=== PATIENT | male | born 1975 | race African-American/Black ===

== ENCOUNTER 2019-05-19 12:06 | Emergency (ER) | payer BC ==
[2019-05-19 12:22] VITALS: BP 121/84
--- NOTE | 2019-05-19 12:32 | PHYS DOC ---
Past History Past Medical History: Seizure Past Surgical History: No Surgical History Alcohol Use: None Drug Use: None Adult General Chief Complaint Chief Complaint: ABDOMINAL PAIN HPI HPI Patient is a 43-year-old male presents complaining of left-sided lower abdominal pain that started yesterday. He has had multiple diarrheal stools since this time. Noted some blood in the first stool when wiping. No blood since that time. Patient's last meal was at [employer] yesterday around noon. No recent travel. No previous surgical history on his abdomen. Describes the pain is achy. Mild to moderate discomfort. Nothing makes the discomfort better or worse. No radiation of the discomfort. Patient has a known seizure disorder with his last seizure being 5 days ago.[] Review of Systems Review of Systems Constitutional: Denies fever or chills [] Eyes: Denies change in visual acuity, redness, or eye pain [] HENT: Denies nasal congestion or sore throat [] Respiratory: Denies cough or shortness of breath [] Cardiovascular: No chest pain or palpitations[] GI: See history of present illness[] : Denies dysuria or hematuria [] Musculoskeletal: Denies back pain or joint pain [] Integument: Denies rash or skin lesions [] Neurologic: Denies headache, focal weakness or sensory changes [] Endocrine: Denies polyuria or polydipsia [] All other systems were reviewed and found to be within normal limits, except as documented in this note. Allergies Allergies Allergies Coded Allergies Type Severity Reaction Last Updated Verified levetiracetam Allergy Unknown 05/19/19 Yes phenytoin Allergy Unknown 05/19/19 Yes Physical Exam Physical Exam Constitutional: Well developed, well nourished, no acute distress, non-toxic appearance. [] HENT: Normocephalic, atraumatic, bilateral external ears normal, oropharynx moist, no oral exudates, nose normal. [] Eyes: PERRLA, EOMI, conjunctiva normal, no discharge. [] Neck: Normal range of motion, no tenderness, supple, no stridor. [] Cardiovascular:Heart rate regular rhythm, no murmur [] Lungs & Thorax: Bilateral breath sounds clear to auscultation [] Abdomen: Bowel sounds normal, soft, tenderness in the left lower quadrant, no rebound, no guarding, no rigidity, able to sit up and lay back without any diffi culty, no masses, no pulsatile masses. [] Skin: Warm, dry, no erythema, no rash. [] Back: No tenderness, no CVA tenderness. [] Extremities: No tenderness, no cyanosis, no clubbing, ROM intact, no edema. [] Neurologic: Alert and oriented X 3, normal motor function, normal sensory function, no focal deficits noted. [] Psychologic: Affect normal, judgement normal, mood normal. [] EKG EKG [] Radiology/Procedures Radiology/Procedures TECHNIQUE: CT abdomen and pelvis with IV contrast with multiplanar reformats. COMPARISON: None FINDINGS: Heart is normal in size. No pericardial or pleural effusion. Clear lung bases. Liver, spleen, gallbladder, pancreas, adrenals and kidneys are within normal limits. No enlarged retroperitoneal or pelvic adenopathy. No free pelvic fluid or ascites. No bowel obstruction. Normal appendix. No pneumoperitoneum. The prostate and seminal vesicles show no large mass. Urinary bladder is within normal limits. Stomach is markedly distended with ingested contrast. Large amount of fluid is seen in the rectum. No suspicious bony lesion. IMPRESSION: Moderate to large amount of fluid in the rectum, nonspecific. No bowel obstruction. No imaging evidence of colitis. No nephrolithiasis or hydronephrosis.[] Course & Med Decision Making Course & Med Decision Making Pertinent Labs and Imaging studies reviewed. (See chart for details) ED course: Patient arrived, was placed in bed, and tolerated exam well. He was a ble to tolerate oral contrast was transported to and from [place] with any complications. He did get some relief with the medications administered. After return of laboratory and imaging studies, these were discussed with the patient voiced understanding. All questions were answered. He was discharged in improved condition. Medical decision making: There is no evidence of an obstruction, perforation, diverticulitis, nor abscess. No evidence of significant electrolyte abnormality. LFTs are noted to be slightly elevated and this can be followed as an outpatient may be related to his antiseizure medicine. No evidence of oral intake intolerance. No urinary tract infection or pyelonephritis. No evidence of starvation status as evidenced by no ketones in his urine.[] Dragon Disclaimer Dragon Disclaimer This electronic medical record was generated, in whole or in part, using a voice recognition dictation system. Departure Departure: Impression: Primary Impression: Diarrhea Disposition: 01 HOME, SELF-CARE Condition: IMPROVED Referrals: [facility] (PCP) Patient Instructions: Diarrhea, Diet for Diarrhea, Adult Additional Instructions: Drink plenty of fluids, frequent small sips. No fatty foods, no milk, and no pepper for the next 48 hours. For the next 48 hours eat a diet rich in carbohydrates with foods such as bananas, rice, applesauce, and toast. Follow-up with your regular doctor in 2 days. If you do not have regular doctor, a list of local clinics will be provided for you. Return to the ER if blood in the stool, unable to tolerate liquids, or any other concerns. Scripts Metoclopramide Hcl (REGLAN) 10 Mg Tablet 10 MG PO QID for nausea and vomiting, #30 TAB Prov: NENA RUVALCABA DO 05/19/19 Hyoscyamine Sulfate (LEVSIN) 0.125 Mg Tablet 0.125 MG PO QID for abdominal pain/cramping, #30 TAB Prov: NENA RUVALCABA DO 05/19/19 Problem Qualifiers Primary Impression: Diarrhea Diarrhea type: unspecified type Qualified Codes: R19.7 - Diarrhea, unspecified NENA RUVALCABA DO May 19, 2019 12:32
[2019-05-19] MEDS ORDERED: ONDANSETRON PF 4 MG/2 ML VIAL. IV ONE (12:45)
[2019-05-19] MEDS ORDERED: HYOSCYAMINE 0.125 MG TAB.RAPDIS PO ONE (12:45)
[2019-05-19 12:48] LABS: BASO % 1 % (0-3); EOS # 0.2 x10^3/uL (0.0-0.7); EOS % 3 % (0-3); HEMATOCRIT 44.6 % (39.0-53.0); HEMOGLOBIN 14.3 g/dL (13.0-17.5); LYMPH # 1.3 x10^3/uL (1.0-4.8); LYMPH % 22 % (24-48); MEAN CORPUSCULAR HEMOGLOBIN 31 pg (25-35); MEAN CORPUSCULAR HGB CONC 32 g/dL (31-37); MEAN CORPUSCULAR VOLUME 98 fL (79-100); MONO # 0.6 x10^3/uL (0.0-1.1); MONO % 11 % (0-9); NEUT # 3.6 x10^3uL (1.8-7.7); NEUT % 64 % (31-73); PLATELET COUNT 363 x10^3/uL (140-400); RED BLOOD COUNT 4.57 x10^6/uL (4.30-5.70); RED CELL DISTRIBUTION WIDTH 12.8 % (11.5-14.5); WHITE BLOOD COUNT 5.7 x10^3/uL (4.0-11.0)
[2019-05-19] MEDS: IV NORMAL SALINE 1,000ML 1,000 ML IV SCH ×2 (12:48→13:25)
[2019-05-19] MEDS ORDERED: IOHEXOL 240 MG/ML 50ML VIAL. PO ONE (13:00)
[2019-05-19] MEDS ORDERED: IOHEXOL 300 MG/ML 75 ML VIAL. IV ONE (13:00)
[2019-05-19 13:03] LABS: ALBUMIN 4.1 g/dL (3.4-5.0); ALBUMIN/GLOBULIN RATIO 0.8 (1.0-1.7); CALCIUM 9.8 mg/dL (8.5-10.1); CREATININE 0.9 mg/dL (0.7-1.3); GFR 110.4; TOTAL BILIRUBIN 0.4 mg/dL (0.2-1.0); TOTAL PROTEIN 9.4 g/dL (6.4-8.2)
[2019-05-19 13:04] LABS: POTASSIUM 4.6 mmol/L (3.5-5.1)
--- NOTE | 2019-05-19 13:58 | RAD ---
PQRS Compliance statement: One or more of the following individualized dose reduction techniques were utilized for this examination: 1. Automated exposure control. 2. Adjustment of the mA and/or kV according to patient size. 3. Use of iterative reconstruction technique. Indication:Left lower abdominal pain. TECHNIQUE: CT abdomen and pelvis with IV contrast with multiplanar reformats. COMPARISON: None FINDINGS: Heart is normal in size. No pericardial or pleural effusion. Clear lung bases. Liver, spleen, gallbladder, pancreas, adrenals and kidneys are within normal limits. No enlarged retroperitoneal or pelvic adenopathy. No free pelvic fluid or ascites. No bowel obstruction. Normal appendix. No pneumoperitoneum. The prostate and seminal vesicles show no large mass. Urinary bladder is within normal limits. Stomach is markedly distended with ingested contrast. Large amount of fluid is seen in the rectum. No suspicious bony lesion. IMPRESSION: Moderate to large amount of fluid in the rectum, nonspecific. No bowel obstruction. No imaging evidence of colitis. No nephrolithiasis or hydronephrosis. Electronically signed by: Delfin Gaspar DO (05/19/2019 1:56 PM) [facility]
[2019-05-19 14:12] LABS: BILIRUBIN,URINE NEG (NEG); CLARITY,URINE CLEAR; COLOR,URINE YELLOW; GLUCOSE,URINE NEG (NEG); NITRITE,URINE NEG (NEG); UROBILINOGEN,URINE 0.2 mg/dL (0.2 mg/dL)
[2019-05-19 14:13] LABS: BACTERIA,URINE 0 /HPF (0-FEW); RBC,URINE 0 /HPF (0-2); SQUAMOUS EPITHELIAL CELL,UR OCC /LPF; WBC,URINE 0 /HPF (0-4)
[2019-05-19] MEDS ORDERED: METO10TA81 PO (14:22)
[2019-05-19] MEDS ORDERED: HYOS0.1264 PO (14:22)
== END 2019-05-19 14:30 | disposition home or self-care (01) ==
LOC: ER 12:06
DX: R19.7 Diarrhea, unspecified (principal); R10.32 Left lower quadrant pain; G40.909 Epilepsy, unspecified, not intractable, without status epilepticus; Z88.8 Allergy status to other drugs, medicaments and biological substances
CPT/HCPCS: 36415; 74177; 80053; 81001; 83690; 85025; 96361; 96374; 99285; J2405; J7030

== ENCOUNTER 2021-06-30 09:11 | Emergency (ER) | payer BC ==
[~2021-06-30] VITALS: Ht 177.8 cm; Wt 57.0 kg
[~2021-06-30 09:11] MED LIST: HYOS0.1264 PO; METO10TA81 PO
[2021-06-30 09:23] VITALS: BP 121/84
--- NOTE | 2021-06-30 09:38 | PHYS DOC ---
Past History Past Medical History: Seizure Past Surgical History: No Surgical History Alcohol Use: None Drug Use: None Adult General HPI HPI Patient is a [age] year old [sex] who presents with [] Review of Systems Review of Systems Fourteen body systems of review of systems have been reviewed. See HPI for pertinent positives and negative responses, other valenzuela all other systems are negative, non-pertinent or non-contributory Allergies Allergies Allergies Coded Allergies Type Severity Reaction Last Updated Verified levetiracetam Allergy Unknown 05/19/19 Yes phenytoin Allergy Unknown 05/19/19 Yes Physical Exam Physical Exam Constitutional: Well developed, well nourished, no acute distress, non-toxic appearance. HENT: Normocephalic, atraumatic, bilateral external ears normal, oropharynx moist, no oral exudates, nose normal. Eyes: PERRLA, EOMI, conjunctiva normal, no discharge. Neck: Normal range of motion, no tenderness, supple, no stridor. Cardiovascular: Heart rate regular, sinus rhythm, no murmurs rubs or gallops Lungs & Thorax: Bilateral breath sounds clear to auscultation Abdomen: Bowel sounds normal, soft, no tenderness, no masses, no pulsatile masses. Nonsurgical abdomen, no peritoneal signs Skin: Warm, dry, no erythema, no rash. Back: No tenderness, no CVA tenderness. Extremities: No tenderness, no cyanosis, no clubbing, ROM intact, no edema. Neurologic: Alert and oriented X 3, grossly normal motor & sensory function, no focal deficits noted. Psychologic: Affect normal, judgement normal, mood normal. EKG EKG [] Radiology/Procedures Radiology/Procedures [] Heart Score Risk Factors: Risk Factors: DM, Current or recent (<one month) smoker, HTN, HLP, family history of CAD, obesity. Risk Scores: Risk Factors: DM, Current or recent (<one month) smoker, HTN, HLP, family history of CAD, obesity. Course & Med Decision Making Course & Med Decision Making Pertinent Labs and Imaging studies reviewed. (See chart for details) [] Dragon Disclaimer Dragon Disclaimer This electronic medical record was generated, in whole or in part, using a voice recognition dictation system. Departure Departure: Impression: Primary Impression: Complicated UTI (urinary tract infection) Disposition: HOME / SELF CARE / HOMELESS Condition: STABLE Referrals: GREGORIO SALGUERO MD (PCP) Patient Instructions: Urinary Retention, Acute, Male, Urinary Tract Infection Additional Instructions: You were seen for a urinary tract infection. Please continue to take the antibiotics as prescribed. Please keep your Hopkins cath in place until you can be seen by either your primary care physician or urologist in outpatient setting. You should return to the ED if you develop worsening pain, fever, flank pain, or any other new or concerning symptoms. Follow up with primary care for further management if ongoing symptoms. Scripts Ciprofloxacin Hcl (CIPROFLOXACIN HCL) 500 Mg Tablet 1 TAB PO BID for uti, #13 TAB Prov: HAZEL MARVIN DO 06/30/21 Hydrocodone Bit/Acetaminophen (HYDROCODONE-APAP 5-325 ) 1 Each Tablet 1 TAB PO PRN Q6HRS PRN for PAIN, #10 TAB 0 Refills Prov: HAZEL MARVIN DO 06/30/21 HAZEL MARVIN DO Jun 30, 2021 09:38
[2021-06-30] MEDS ORDERED: HYDROcodone/APAP 5/325MG 1 TAB TABLET PO ONE (12:00)
[2021-06-30 13:04] LABS: BILIRUBIN,URINE NEG (NEG); CLARITY,URINE HAZY; COLOR,URINE AMBER; GLUCOSE,URINE NEG (NEG)
[2021-06-30 13:05] LABS: BACTERIA,URINE MOD /HPF (0-FEW); NITRITE,URINE NEG (NEG); SQUAMOUS EPITHELIAL CELL,UR OCC /LPF
[2021-06-30] MEDS ORDERED: HYDR-2155 PO (13:51)
[2021-06-30] MEDS ORDERED: CIPR500T2 PO (13:54)
[2021-06-30] MEDS ORDERED: CIPROFLOXACIN HCL 500 MG TABLET PO ONE (14:00)
== END 2021-06-30 14:26 | disposition home or self-care (01) ==
LOC: ER 09:17
DX: N39.0 Urinary tract infection, site not specified (principal); Z88.8 Allergy status to other drugs, medicaments and biological substances
CPT/HCPCS: 36415; 81001; 87086; 87491; 87591; 99283-25

== ENCOUNTER 2021-07-02 03:48 | Emergency (ER) | payer BC ==
[~2021-07-02] VITALS: Ht 177.8 cm; Wt 57.0 kg
[~2021-07-02 03:48] MED LIST changes: +CIPR500T2 PO; +HYDR-2155 PO
[2021-07-02 03:50] VITALS: BP 117/66
--- NOTE | 2021-07-02 04:00 | PHYS DOC ---
Past History Past Medical History: Seizure Past Surgical History: No Surgical History Alcohol Use: None Drug Use: None General Adult EDM: Chief Complaint: OTHER COMPLAINTS HPI: HPI: ".. I was here .. because I could not pee.. and they put this cath thing in.. so I could pee... it helped.. but after taking a shower today.. my penis started hurting...".. " It still stubbs..." Patient is a 45 year old male who presents with above hx and complaints of urinary retention. Patient had a catheter placed on 06/30/21. Patient started on Cipro and hydrocodone for pain on that date. Patient has been passing urine into leg bag without problems since that time. However after taking a shower tonight he developed burning at meatus and up mid shaft of penis. It was noted that patient was disconnecting the urinary tube from the catheter when he took baths. Patient instructed avoid this but maintain a closed circuit placement. Patient denies any recent travel. No significant ill contacts. Works at [employer]. Patient follows with Dr. Flores . Pt. plan follow up at [facility] urology. Review of Systems: Review of Systems: Constitutional: Denies fever or chills Eyes: Denies change in visual acuity HENT: Denies nasal congestion or sore throat Respiratory: Denies cough or shortness of breath Cardiovascular: Denies chest pain or edema GI: Denies abdominal pain, nausea, vomiting, bloody stools or diarrhea : Complains of dysuria and penile pain-catheter problem Musculoskeletal: Denies back pain or joint pain Integument: Denies rash Neurologic: Denies headache, focal weakness or sensory changes Endocrine: Denies polyuria or polydipsia Lymphatic: Denies swollen glands Psychiatric: Denies depression or anxiety Family History: Family History: Noncontributory to presentation Current Medications: Current Meds: See nursing for home meds Allergies: Allergies: Allergies Coded Allergies Type Severity Reaction Last Updated Verified levetiracetam Allergy Unknown 05/19/19 Yes phenytoin Allergy Unknown 05/19/19 Yes Physical Exam: PE: Constitutional: Moderate acute distress, non-toxic appearance. [] HENT: Normocephalic, atraumatic, bilateral external ears normal, oropharynx moist, no oral exudates, nose normal. [] Eyes: PERRLA, EOMI, conjunctiva normal, no discharge. [] Neck: Normal range of motion, no tenderness, supple, no stridor. [] Cardiovascular:Heart rate regular rhythm, no murmur [] Lungs & Thorax: Bilateral breath sounds equal apex on auscultation [] Abdomen: Bowel sounds decreased, soft, no tenderness, no masses, no pulsatile masses. Circumcised male. Testicles descended. Currently has a Hopkins in place. Hopkins does appear to be functioning adequately. Skin: Warm, dry, no erythema, no rash. [] Back: No tenderness, no CVA tenderness. [] Extremities: No tenderness, no cyanosis, no clubbing, ROM intact, no edema. [] Neurologic: Alert and oriented X 3, normal motor function, normal sensory function, no focal deficits noted. [] Psychologic: Affect anxious, judgement normal, mood normal. [] EKG: EKG: [] Radiology/Procedures: Radiology/Procedures: [] Heart Score: C/O Chest Pain: N/A Risk Factors: Risk Factors: DM, Current or recent (<one month) smoker, HTN, HLP, family history of CAD, obesity. Risk Scores: Score 0 - 3: 2.5% MACE over next 6 weeks - Discharge Home Score 4 - 6: 20.3% MACE over next 6 weeks - Admit for Clinical Observation Score 7 - 10: 72.7% MACE over next 6 weeks - Early Invasive Strategies Course & Med Decision Making: Course & Med Decision Making Pertinent Labs and Imaging studies reviewed. (See chart for details) Patient to continue his current antibiotics of Cipro and take supplemental pain meds as directed. Would also add Flomax to treatment. Patient warned of hypotension with Flomax. Patient keep follow-up with urology. Patient instructed not to break the circuit between the catheter and leg bag when he takes a shower because this can result in contamination. Must follow-up. Return if any concerns. Patient unsure if he wants to leave the catheter out or leave it in with his follow-up at urology. We will give a dose of Pyridium to see if that helps with patient's catheter discomfort. Patient warned that Pyridium can make his urine turn red. Patient's Hopkins was removed and is to return if he is unable to pass urine. Patient still instructed to keep his follow-up with urology. Take meds as previous directed. Follow-up urinary cultures. Impression: 1. History of urinary retention acute 2. Complaints of dysuria/catheter problems [] Dragon Disclaimer: Dragon Disclaimer: This electronic medical record was generated, in whole or in part, using a voice recognition dictation system. Departure Departure: Referrals: GREGORIO FLORES MD (PCP) Scripts Tamsulosin Hcl (FLOMAX) 0.4 Mg Cap.er.24h 0.4 MG PO DAILY for urinary retention for 30 Days, #30 CAP.SR Prov: MINNIE GARZA MD 07/02/21 Olivia Disclaimer This chart was dictated in whole or in part using Voice Recognition software in a busy, high-work load, and often noisy Emergency Department environment. It may contain unintended and wholly unrecognized errors or omissions. Dragon Disclaimer This chart was dictated in whole or in part using Voice Recognition software in a busy, high-work load, and often noisy Emergency Department environment. It may contain unintended and wholly unrecognized errors or omissions. MINNIE GARZA MD Jul 02, 2021 04:00
[2021-07-02] MEDS ORDERED: TAMS0.4C97 PO (04:25)
[2021-07-02] MEDS: KETOROLAC 60 MG/2 ML VIAL. IM ONE (04:41)
[2021-07-02] MEDS: PHENAZOPYRIDINE 200 MG TABLET. PO ONE (04:41)
[2021-07-02] MEDS: TAMSULOSIN 0.4 MG CAP.ER.24H. PO ONE (04:42)
== END 2021-07-02 05:20 | disposition home or self-care (01) ==
LOC: ER 03:48
DX: R30.0 Dysuria (principal); R33.9 Retention of urine, unspecified; Z88.8 Allergy status to other drugs, medicaments and biological substances
CPT/HCPCS: 96372; 99283; J1885

== ENCOUNTER → 2021-08-03 | Outpatient (CLI) | payer BC ==
[~2021-08-03] MED LIST changes: +TAMS0.4C97 PO
== END ==
LOC: LAB 12:49
PROVIDERS: ATTEND Psychiatry & Neurology Epilepsy
DX: G40.209 Localization-related (focal) (partial) symptomatic epilepsy and epileptic syndromes with complex partial seizures, not intractable, without status epilepticus (principal)
CPT/HCPCS: 36415; 80175; 80183